=== PATIENT | male | born 1990 | race Caucasian/White ===

== ENCOUNTER 2024-03-20 04:17 | Emergency (ER) | payer SELFPAY ==
[~2024-03-20] VITALS: Ht 182.9 cm; Wt 71.0 kg
[2024-03-20 04:19] VITALS: BP 137/88; PULSE 110; RESP 18; TEMP 98.1; O2SAT 98
== END 2024-03-20 05:29 | disposition left against medical advice (07) ==
LOC: ER 04:17
DX: R51.9 Headache, unspecified (principal); Z53.21 Procedure and treatment not carried out due to patient leaving prior to being seen by health care provider